=== PATIENT | male | born 1965 | race Caucasian/White ===

== ENCOUNTER → 2021-04-16 | Outpatient (CLI) | payer MEDICARE ==
[~2021-04-16] MED LIST: BC POWDER PACK1 EACH PO; CLARITIN10 MG PO; DEXILANT60 MG PO; FLUTICASONE SPRAY; HYDROCODONE-AC1 EAC1 PO; LINZESS290 MCG PO; LISINOPRIL-HCT1 EAC2 PO; MIRALAX PO
[2021-04-16 12:46] LABS: RED BLOOD COUNT 5.56 M/UL (4.20-5.50); WHITE BLOOD COUNT 6.9 K/UL (4.5-11.0)
[2021-04-16 13:04] LABS: BUN/CREATININE RATIO 15 (0-10)
== END ==
LOC: OPSV2 04-15 11:00 → EDSTATUS 11:00 → OPSV2 11:24
PROVIDERS: Orthopaedic Surgery
DX: Z01.818 Encounter for other preprocedural examination (principal); M17.11 Unilateral primary osteoarthritis, right knee
CPT/HCPCS: 71046; 80048; 85027; 93005